=== PATIENT | male | born 1980 ===

== ENCOUNTER 2024-07-29 07:34 | Outpatient (CLI) | payer OTHER | END 2024-07-29 07:41 | disposition home or self-care (01) | LOC: RAD 07:34 | PROVIDERS: ATTEND Orthopaedic Surgery | DX: S82.392A Other fracture of lower end of left tibia, initial encounter for closed fracture (principal) ==

== ENCOUNTER 2024-08-01 13:28 | Outpatient (CLI) | payer OTHER | END 2024-08-01 13:35 | disposition home or self-care (01) | LOC: TOM 13:28 | PROVIDERS: ATTEND Orthopaedic Surgery | DX: S82.392A Other fracture of lower end of left tibia, initial encounter for closed fracture (principal) ==

== ENCOUNTER 2024-09-30 11:01 | Outpatient (CLI) | payer OTHER | END 2024-09-30 11:06 | disposition home or self-care (01) | LOC: RAD 11:01 | PROVIDERS: ATTEND Orthopaedic Surgery | DX: S82.392D Other fracture of lower end of left tibia, subsequent encounter for closed fracture with routine healing (principal) ==

== ENCOUNTER 2024-12-14 08:12 | Outpatient (CLI) | payer OTHER | END 2024-12-14 08:19 | disposition home or self-care (01) | LOC: RAD 08:12 | PROVIDERS: ATTEND General Practice | DX: S82.51XS Displaced fracture of medial malleolus of right tibia, sequela (principal) ==